=== PATIENT | male | born 1945 | race Caucasian/White ===

== ENCOUNTER → 2016-05-03 | Day surgery (SDC) | payer MEDICARE ==
[2016-04-30 13:25] VITALS: BMI 31.0
[~2016-05-03] VITALS: Ht 177.8 cm; Wt 95.4 kg
[~2016-05-03] MED LIST: AMLO-110 PO; ATROPINE SULFATE 0.1 MG/ML 5ML SYR IV PRN; CEFAZOLIN 2000 MG/60 ML D5W IV SCH; DEXAMETHASONE SOD INJ 4 MG/ML VIAL ONE; EpHEDrine SULFATE INJ 50 MG/ML AMP IV PRN; EpINEphrine INJ 1MG/ML AMP 1 MG/ML AMP ONE; FENTANYL CITRATE INJ 50 MCG/1 ML 2 ML VIAL ONE; HYDROCODONE/ACETAMOPHEN 5/325MG TAB PO PRN; LACTATED RINGER'S 1000ML 1,000 ML IV SCH; LIDO 2%/EPINEPHRINE 1:100000 20 ML VIAL INFIL ONE; LIDOCAINE 4% MPF SOAK 5 ML = 1 DOSE TOP ONE; LIDOCAINE HCL 2% 2 ML VIAL (20MG/ML) ONE; LIDOCAINE HCL 4% TOP 50 ML VIAL EXT ONE; MIDAZOLAM HCL 1 MG/ML 2ML VIAL ONE; ONDANSETRON INJ 2 MG/ML 2 ML VIAL IV PRN; ONDANSETRON INJ 2 MG/ML 2 ML VIAL ONE; OXYMETAZOLINE HCL 0.05% NA SPR 15 ML BTL PRN; OXYMETAZOLINE HCL 0.05% NA SPR 15 ML BTL SCH; PANT40TA PO; PROPOFOL IV EMULSION 10 MG/ML 20 ML VIAL IV ONE
[2016-05-03 08:07] VITALS: Ht 177.8 cm; Wt 95.4 kg
--- NOTE | 2016-05-03 08:11 | History & Physical Bridge - [place] ---
H&P Re-Evaluation Bridge Note: I have examined the patient, reviewed the History & Physical and in the interval since the performance of the History & Physical I have noted the following changes of clinical significance: No changes noted
--- NOTE | 2016-05-03 09:41 | [facility] Operative Report ---
Operative Report Operative Date May 03, 2016. Pre-Operative Diagnosis Chronic Sinusitis, Headache, Post Nasal Drainage Post-Operative Diagnosis Same Procedure(s) Performed Bilateral Endoscopic Sinus Surgery To Include Left Frontal Sinusotomy And Right Sphenoidotomy Surgeon Dr Joyner [facility] [facility] Assistant Surgeon(s) None Estimated Blood Loss 5 ml Findings 1. OBSTRUCTED LEFT FRONTAL AND RIGHT SPHENOID SINUSES WITH MILD MUCOSAL THICKENING Specimens None I attest to the content of the Intraoperative Record and any orders documented therein. Any exceptions are noted below.
--- NOTE | 2016-05-03 09:43 | Discharge Instructions ---
Discharge Instructions Admission Reason for Admission: Chronic Sinusitis, Headache, Post Nasal Drainage Discharge Discharge Diagnosis / Problem: SAME Discharge Goals Goal(s): Improve function Activity Recommendations Activity Limitations: as noted below LIGHT ACTIVITY AND NO NOSE BLOWING FOR 2WEEKS; NO DRIVING WHILE ON [place]CO . Current Hospital Diet Patient's current hospital diet: Discharge Diet Recommended Diet: Regular Diet Procedures Procedures Performed: Bilateral Endoscopic Sinus Surgery To Include Left Frontal Sinusotomy And Right Sphenoidotomy Pending Studies Studies pending at discharge: no Laboratory Results Lipid Panel Test 02/25/16 16:48 Range/Units Triglycerides Level 172 H 0-150 mg/dl Cholesterol Level 213 H 0-200 mg/dl HDL Cholesterol 49 mg/dl Cholesterol/HDL Ratio 4.3 LDL Cholesterol, Calculated 130 mg/dl Medical Emergencies . Who to Call and When: Medical Emergencies: If at any time you feel your situation is an emergency, please call 911 immediately. . Non-Emergent Contact Non-Emergency issues call your: Surgeon . . "Provider Documentation" section prepared by Aman Joyner. VTE Core Measure Inpt VTE Proph given/why not?: SCD's
[2016-05-03] MEDS: FENTANYL CITRATE INJ 50 MCG/1 ML 2 ML VIAL IV PRN ×3 (09:52→10:12)
[2016-05-03 10:31] VITALS: TEMP 36.4
--- NOTE | 2016-05-03 11:02 | OPERATIVE REPORT ---
DATE OF OPERATION: 05/03/2016 PREOPERATIVE DIAGNOSIS: Chronic sinusitis. POSTOPERATIVE DIAGNOSIS: Chronic sinusitis. PROCEDURE: Image guided revision, bilateral endoscopic sinus surgery consisting of: 1. Balloon assisted left frontal sinusotomy. 2. Right sphenoidotomy. SURGEON: Dr. Joyner. ANESTHESIA: General endotracheal. ESTIMATED BLOOD LOSS: 5 mL. FINDINGS: Blocked left frontal and right sphenoid sinuses with mild mucosal thickening involving these paranasal sinuses. SPECIMENS: None. COMPLICATIONS: None. INDICATIONS FOR THE PROCEDURE: The patient is a pleasant 70-year-old male with a history of chronic sinusitis status post bilateral endoscopic sinus [place] [address] Downs, who had continued chronic sinusitis symptoms despite maximum medical therapy with systemic antibiotics and steroids. A post-treatment CT scan of the sinuses revealed a blocked left frontal and right sphenoid sinus with moderate mucosal thickening in the left frontal and mild mucosal thickening involving the right sphenoid sinuses. Because the patient did not have complete relief of his symptoms, which were primarily headache and postnasal drip, he presents for the above-mentioned procedures on an outpatient elective basis. DETAILS OF PROCEDURE: After informed consent had been obtained from the patient, the patient was wheeled to the operating room and placed on the operating room table in the supine position. Monitors were placed. After the induction of general endotracheal anesthesia, the patient was prepped in the usual fashion for image-guided bilateral endoscopic sinus surgery. The Medigram fusion head set was placed over the forehead and was registered, calibrated, and verified and used for the entire case. Lidocaine and epinephrine pledgets were placed in the bilateral nasal cavities and pressure applied. After allowing adequate time for vasoconstriction and decongestion, the left-sided pledgets were removed, and the left middle turbinate and lateral nasal wall were injected with 1% lidocaine with 1:100,000 epinephrine. The same was done on the right side. After allowing adequate time for anesthesia and decongestion, Microdebrider was used to remove some scar tissue and diseased mucosa blocking the opening to the left frontal ethmoidal recess. Using a frontal sinus suction and image guidance, the left frontal sinus was entered which was quite difficult due to the extensive scar tissue involved. Once this was entered, a size 6 frontal sinus balloon was inserted and visualized using image guidance. This was inflated to 12 atmospheres of pressure in 2 different locations to dilate the left frontal recess tract. After this had been performed using a 45 degree endoscope, the powered instrumentation was used to remove polypoid tissue involving the left frontal ethmoidal recess in order to perform a left frontal sinusotomy. A lidocaine and epinephrine pledget was then placed into the left ethmoid sinus, and the right side was then addressed. Using image guidance and a straight suction. The right sphenoid sinus was entered via a transethmoid approach. There was some diseased ethmoid air cells blocking the opening to the natural ostia of the sphenoid sinus. These were debrided using the powered instrumentation. Once the suction was placed into the right sphenoid sinus and confirmed using image guidance, the medial and inferior aspect of the right sphenoid sinus ostium was enlarged using powered instrumentation. All the pledgets were then removed from the sinonasal cavities. Sinonasal cavities were suctioned. The patient's previous maxillary antrostomies and ethmoid cavities were widely patent. Merogel was then placed into the bilateral ethmoid sinuses/middle meati. The nasal cavities and nasopharynx were then suctioned. An orogastric tube was placed and the stomach was suctioned free of air and stomach contents. This marked the end of the case. The patient tolerated the procedure well and there were no apparent complications. The patient was extubated and transferred to the recovery room in stable condition. I attest to the content of the Intraoperative Record and any orders documented therein. Any exceptio ns are noted below.
--- NOTE | 2016-05-03 11:12 | Anesthesia Progress Nt - [facility] ---
Anesthesia Post Op Note Date & Time May 03, 2016 at 11:12 Vital Signs Pain Intensity: 8.0 Vital Signs Past 12 Hours Date Time Temp Pulse Resp B/P Pulse Ox O2 Delivery O2 Flow Rate FiO2 05/03/16 10:31 36.4 90 16 147/77 96 Room Air 05/03/16 10:20 136/76 05/03/16 10:19 144/111 05/03/16 10:18 88 13 05/03/16 10:18 37.0 88 16 136/76 95 Room Air 05/03/16 10:18 88 13 96 05/03/16 10:13 165/84 05/03/16 10:08 85 12 159/89 100 05/03/16 10:08 86 17 100 05/03/16 10:04 132/81 05/03/16 10:03 87 14 99 05/03/16 10:03 86 14 05/03/16 09:58 141/80 05/03/16 09:54 129/79 05/03/16 09:53 86 15 100 05/03/16 09:53 88 17 98 05/03/16 09:49 134/76 05/03/16 09:48 87 13 99 05/03/16 09:48 88 13 05/03/16 09:44 142/72 05/03/16 09:39 170/78 05/03/16 09:38 92 21 99 05/03/16 09:38 36.8 93 16 170/78 98 Room Air 05/03/16 09:38 94 16 98 05/03/16 07:56 36.9 88 20 139/86 96 Room Air Notes Mental Status: alert / awake / arousable, participated in evaluation Pt Amnestic to Procedure: Yes Nausea / Vomiting: adequately controlled Pain: adequately controlled Airway Patency, RR, SpO2: stable & adequate BP & HR: stable & adequate Hydration State: stable & adequate Anesthetic Complications: no major complications apparent
[2016-05-03 11:16] VITALS: BP 134/78; PULSE 92; O2SAT 97
== END | disposition home or self-care (01) ==
LOC: X.SURG 07:38
DX: J32.9 Chronic sinusitis, unspecified (principal); R51 Headache; R09.82 Postnasal drip; E78.5 Hyperlipidemia, unspecified; I10 Essential (primary) hypertension; G47.33 Obstructive sleep apnea (adult) (pediatric); Z90.89 Acquired absence of other organs; F41.9 Anxiety disorder, unspecified; Z68.34 Body mass index [BMI] 34.0-34.9, adult; E66.9 Obesity, unspecified; Z79.82 Long term (current) use of aspirin; Z90.49 Acquired absence of other specified parts of digestive tract; Z98.890 Other specified postprocedural states; Z87.891 Personal history of nicotine dependence; F32.9 Major depressive disorder, single episode, unspecified; Z81.8 Family history of other mental and behavioral disorders; Z82.49 Family history of ischemic heart disease and other diseases of the circulatory system; Z80.9 Family history of malignant neoplasm, unspecified